=== PATIENT | male | born 1960 | race Caucasian/White ===

== ENCOUNTER → 2019-02-09 | Outpatient (CLI) | payer OTHER ==
[~2019-02-09] VITALS: Ht 185.4 cm; Wt 102.6 kg
[~2019-02-09] MED LIST: ALLEGRA ALLERGY60 MG PO; APAP500 PO; CHILDREN'S ALLE30 M1 PO; FLONASE 0.05%50 MCG NASAL; MELOXICAM15 MG PO; MOBIC15 MG PO; OMEPRAZOLE20 M1 PO; ONDANSETRON HCL4 M2 PO
[2019-02-09 13:34] VITALS: BP 115/70
--- NOTE | 2019-02-09 14:17 | NUR ---
Pain Clinic Assessment: 1. History of Osteoarthritis: NONE KNOWN History of Rheumatoid Arthritis: NONE 2. Height: 6 ft. 1 in. 185.4 cm. Weight: 226.2 lb. oz. 102.604 kg. Patient's BMI: 29.9 3. Vital Signs: BP: 115/70 Pulse: 51 Resp: 14 Temp: 02 Sat: 98 ECG Mon: 4. Pain Intensity: 3-4 5. Fall Risk: Dizziness: Y Needs help standing or walking: N Fallen in the last 3 months: Y Fall risk comments: 6. Patient on Blood Thinner: None 7. History of Hypertension: N 8. Opioid Therapy greater than 6 weeks: N Opiate Contract Signed: 9. Risk Assessment Tool Provided: low risk 10. Functional Assessment Tool: 11. Recreational Drug Use: Current within past 3 mos Drug Type: MARIJUANA Tobacco Use: Never Smoker Tobacco Type: Amount or Packs/day: How Many Years: Alcohol Use: Yes Frequency: Weekly Quant: 2
--- NOTE | 2019-02-23 13:08 | HPC ---
[facility] [place] [address] PAIN MANAGEMENT CONSULTATION Name: ALIYAKENYON AMIE Room #: REG [facility] WinAmishaBettyAmisha#: [id number] Admission: 02/09/19 Attend Phys: Ursula Cowan MD Discharge: Date of : 62 Report #: [id number] THIS REPORT FOR: //name// CC: Torres Cowan DATE OF SERVICE: 02/09/2019 CHIEF COMPLAINT: Low back pain with pain down into the right leg. HISTORY: The patient is a 58-year-old gentleman who has been seen in the pain clinic because of lumbar radiculopathy. He has undergone epidural steroid injections and gleaned benefits from these. At this juncture, he has noted a recurrence of pain and discomfort. It is radiating down in the lower portion of his back and the legs bilaterally. He has gleaned greater than 80% relief after epidural steroid injections. They usually last for some time. He is experiencing pain in low back with pain down into the buttocks. Notes that standing, sitting, and walking can be problematic. He has returned today with the hopes of undergoing another epidural steroid injection to help quell his discomfort. ALLERGIES: PENICILLIN. CURRENT MEDICATIONS: Flonase, meloxicam 15 mg, omeprazole 20 mg, and Marychuy. PHYSICAL EXAMINATION: GENERAL: The patient is a well-developed, well-nourished white male. Appears his stated age. He is alert and oriented x 3. His affect is appropriate. Speech is fluent. HEENT: Normocephalic, atraumatic. Extraocular eye muscles intact. Sclerae nonicteric. Mucous membranes are moist. MUSCULOSKELETAL: Upper extremity muscle strength 5/5 for the major muscle groups. The patient without significant scoliosis, kyphosis, or lordosis. The patient has pain and discomfort that radiates down into the left calf area and down into his right side as well. IMPRESSION: 1. Lumbar radiculopathy - L5-S1 dermatomal distribution. 2. History of posterior fossa astrocytoma. 3. Stomach problems. 4. Ataxia. RECOMMENDATIONS: We discussed treatment options with the patient. Risks and benefits of an epidural steroid injection were discussed. They include but are not limited to infection, worsening of pain, no improvement in pain, and the patient elects to proceed. [address] [address] PAIN MANAGEMENT CONSULTATION Name: ALIYAKENYON AMIE Room #: REG [facility] Cuca#: [id number] Admission: 02/09/19 Attend Phys: Ursula Cowan MD Discharge: Date of : 62 Report #: [id number] PROCEDURE NOTE: The patient was taken to the procedure area. His back was sterilely prepped with a Betadine solution. Fluoroscopy was used to identify the L5-S1 area. A total of 80 mg Depo-Medrol, 40 mg triamcinolone and 2 mL of 0.25% bupivacaine was injected using a midline approach at the L5-S1 area. A total of 14 seconds fluoroscopy time was used. The patient's pain decreased to 0-1 at the time of discharge. He will follow up in the future as needed. We would like to thank you for letting us participate in his care. We hope he continues to improve. <ELECTRONICALLY SIGNED> By: Ursula Cowan MD 02/23/19 [id number] Ursula Cowan MD /nt
== END | disposition home or self-care (01) ==
LOC: PAIN 07:10
DX: M54.16 Radiculopathy, lumbar region (principal); G89.29 Other chronic pain; Z98.890 Other specified postprocedural states; Z79.899 Other long term (current) drug therapy; Z88.0 Allergy status to penicillin